=== PATIENT | female | born 1955 | race Caucasian/White ===

== ENCOUNTER → 2017-09-28 | Day surgery (SDC) | payer OTHER ==
[~2017-09-28] VITALS: Ht 165.1 cm; Wt 81.2 kg
[~2017-09-28] MED LIST: ALBUTEROL SULFAT3 M1 INH; ALPRAZOLAM1 MG PO; ALPRAZOLAM2 MG PO; AMITRIPTYLINE H50 M2 PO; AMITRIPTYLINE H50 MG PO; ASPIRIN EC325 MG PO; ASPIRIN EC81 M1 PO; ATORVASTATIN CA20 M1 PO; BACLOFEN10 M1 PO; BUTALBITAL COMP PO; CALCIUM 600600 M1 PO; CLOPIDOGREL75 M1 PO; CLOPIDOGREL75 MG PO; CYMBALTA60 MG PO; DIAZEPAM10 MG PO; DILAUDID2 MG PO; DULOXETINE HCL60 MG PO; HYDROCHLOROTHIA25 M1 PO; HYDRODIURIL 2525 MG PO; LIDOCAINE1 EACH TOP; LIDODERM 5% PAT1 PAT TOP; LINZESS290 MCG PO; LOPRESSOR 25MG25 MG PO; METOPROLOL TART25 M1 PO; MULTIVITAMINS1 EAC9 PO; ONDANSETRON HCL4 MG PO; ONDANSETRON HYDR4 MG PO; OXYCODONE AND A1 TAB PO; OXYCODONE HCL15 M1 PO; OXYCODONE-ACETAMINOP PO; PANTOPRAZOLE SO40 M1 PO; PANTOPRAZOLE SO40 MG PO; PROAIR HFA0.09 MG/Ac INH; PROAIR HFA8.5 GM INH; SUCRALFATE1 G1 PO; TOPIRAMATE100 M2 PO; TOPIRAMATE100 MG PO; VERAPAMIL HCL120 M2; VERAPAMIL HYDR120 M1 PO; ZOFRAN4 M1 SL
--- NOTE | 2017-09-28 15:22 | Operative Report ---
Operative/Inv Procedure Report Surgery Date: 09/28/17 Name of Procedure: Laparoscopic cholecystectomy Pre-Operative Diagnosis: Biliary colic Post-Operative Diagnosis: Same Estimated Blood Loss: scant Surgeon/Sharepoint Administrator: Aung GOLDSMITH,Dusty Cantrell/Cassius SANTANA Anesthesia: general endotracheal tube Drains: None Specimens: Gallbladder Operative Indication: 62-year-old woman with recurrent right upper quadrant abdominal pain. She's not have gallstones and presents for elective resection Operative/Procedure Note Note: After informed consent patient is brought to the operating room and laid supine. General anesthesia was obtained and her abdomen was prepped and draped. The skin above the umbilicus infiltrated with local anesthesia and a curvilinear incision made sharply. We came down through the subcutaneous tissues bluntly and grasped the fascia with Sesser's. A fasciotomy was created sharply and stay sutures placed. The peritoneum was entered sharply and a blunt Guevara port was placed. Pneumoperitoneum was achieved. 3, 5 mm ports were placed in the epigastrium and right upper quadrant after local anesthesia was instilled and under direct vision the camera. She's placed in reverse Trendelenburg and rotated towards the left. The gallbladder is identified. It was grasped at the dome and retracted towards the head. Infundibulum was then grasped. Adhesions to the undersurface were taken down with blunt and cautery dissection. We dissected both sides the triangle Calot peritoneal tissue with cautery. The artery was medial and its normal anatomic position. It was cauterized medially to allow it to be mobilized away from the duct. [place] was cleared of areolar tissue with cautery. The arteries and duct were doubly ligated with clips. Gallbladder is removed from the fossa electrocautery. There was a solitary posterior branch which was clipped ligated. Gallbladder was placed in Endo Catch bag and cinched up. Right upper quadrant was and suction irrigated normal saline. Hemostasis achieved with cautery. The ports were then removed and the gallbladder delivered and passed off the field. The fascia was closed with 0 Vicryl suture. Skin incisions closed with 4-0 Vicryl. Steri-Strips and sterile dressing applied. Sponge and needle counts are correct. CC: Tod GOLDSMITH,Blaine Keane
== END ==
LOC: STS 02:33
DX: K80.20 Calculus of gallbladder without cholecystitis without obstruction (principal); K80.10 Calculus of gallbladder with chronic cholecystitis without obstruction; I10 Essential (primary) hypertension; G47.33 Obstructive sleep apnea (adult) (pediatric)
CPT/HCPCS: J0690; J2250; J2405